=== PATIENT | female | born 1970 | race Caucasian/White ===

== ENCOUNTER 2021-03-09 03:57 | Emergency (ER) | payer OTHER | END 2021-03-09 05:15 | disposition home or self-care (01) | LOC: FER 03:57 | DX: M25.531 Pain in right wrist (principal); E11.9 Type 2 diabetes mellitus without complications; F17.200 Nicotine dependence, unspecified, uncomplicated; Z88.2 Allergy status to sulfonamides; Z86.16 Personal history of COVID-19 | CPT/HCPCS: 73110; J1885 ==